=== PATIENT | male | born 1995 | race Two or more races ===

== ENCOUNTER 2022-09-11 18:40 | Emergency (ER) | payer OTHER ==
[~2022-09-11] VITALS: Ht 188 cm; Wt 280.0 kg
[2022-09-11 20:17] LABS: Basophils # (auto) 0.1 10 ^3/uL (0-0.2); Basophils % (auto) 0.7 % (0.0-2.0); Eosinophils # (auto) 0.3 10 ^3/uL (0-0.8); Eosinophils % (auto) 2.6 % (0.0-7.0); Hematocrit 43.8 % (41.0-53.0); Hemoglobin 15.2 g/dL (13.5-17.5); Lymphocytes # (auto) 3.6 10 ^3/uL (0.4-5.4); Lymphocytes % (auto) 33.9 % (10.0-50.0); Mean Corpuscular Hemoglobin 31.1 pg (28.0-32.0); Mean Corpuscular Hgb Conc. 34.7 g/dL (32.0-36.0); Mean Corpuscular Volume 89.5 fL (80.0-100.0); Monocytes # (auto) 0.7 10 ^3/uL (0-1.3); Monocytes % (auto) 6.7 % (0.0-12.0); Neutrophils # (auto) 5.9 10 ^3/uL (1.6-8.6); Neutrophils % (auto) 56.1 % (37.0-80.0); Nucleated Red Blood Cells % 0.3 %; Red Blood Cells 4.89 10^6/uL (4.5-5.90); Red Cell Distribution Width 12.9 % (11.8-14.3); White Blood Cell 10.6 10^3/uL (4.4-10.8)
[2022-09-11 20:30] LABS: Calcium 8.5 mg/dL (8.5-10.1); Potassium 4.3 mmol/L (3.5-5.1)
[2022-09-11 20:34] LABS: Albumin 3.8 g/dL (3.4-5.0); BUN/Creatinine Ratio 14.7
[2022-09-11 20:42] LABS: Bilirubin, Total 0.6 mg/dL (0.2-1.0)
[2022-09-11 21:10] LABS: Total Protein 7.7 g/dL (6.4-8.2)
[2022-09-12 00:31] VITALS: BP 143/91
== END 2022-09-12 00:31 | disposition home or self-care (01) ==
LOC: ER 18:44
DX: K62.5 Hemorrhage of anus and rectum (principal)
CPT/HCPCS: 36415; 74176; 80053; 83690; 85025